=== PATIENT | female | born 1985 | race Caucasian/White ===

== ENCOUNTER 2016-10-28 10:41 | Emergency (ER) | payer OTHER ==
--- NOTE | 2016-10-28 10:45 | PDOC ---
History of Present Illness - General Chief Complaint: Cold Symptoms Stated Complaint: COUGH,FEVER, BACK PAIN Time Seen by Provider: 10/28/16 10:42 History Source: Patient Exam Limitations: No Limitations - History of Present Illness Initial Comments: 31 yo F history depression p/w 2 day history of high fever (temp range 103-104.7 ), body aches, malaise, poor appetite, poor PO intake. She states that she took motrin at 7am, but still not feeling better. +Nausea, no vomiting. Nausea is worse when she tries to swallow. She has hoarse voice and difficulty swallowing due to pain/swelling. She did not receive a flu shot this year. No known sick contacts. Returned from a trip to the [place] yesterday. Past History - Past Medical History Allergies/Adverse Reactions: Allergies Allergy/AdvReac Type Severity Reaction Status Date / Time No Known Allergies Allergy Verified 10/28/16 10:43 Home Medications: Ambulatory Orders Guaifenesin AC [Robitussin AC -] 5 ml PO Q6H PRN #60 ml MDD 20 mL 10/28/16 Ibuprofen [Motrin -] 600 mg PO PRN PRN 10/28/16 Ondansetron [Zofran -] 4 mg PO TID #21 tablet 10/28/16 Oseltamivir Phosphate [Tamiflu] 75 mg PO BID #10 capsule 10/28/16 Psychiatric Problems: Yes (depression) Thyroid Disease: Yes (PARATHYROID) - Immunization History Immunization Up to Date: Yes - Psycho/Social/Smoking Cessation Hx Anxiety: Yes Suicidal Ideation: Yes Smoking History: Never smoked Number of Cigarettes Smoked Daily: 0 Hx Alcohol Use: No Drug/Substance Use Hx: No Substance Use Type: None Review of Systems - Review of Systems Able to Perform ROS?: Yes Comments:: GENERAL/CONSTITUTIONAL: +Fever and chills. No weakness. HEAD, EYES, EARS, NOSE AND THROAT: No change in vision. No ear pain or discharge. +Sore throat. CARDIOVASCULAR: +Chest tightness. No shortness of breath. RESPIRATORY: No cough, wheezing, or hemoptysis. GASTROINTESTINAL:+Nausea. No vomiting, diarrhea or constipation. GENITOURINARY: No dysuria, frequency, or change in urination. MUSCULOSKELETAL: No joint or muscle swelling or pain. No neck. +R back pain. SKIN: No rash NEUROLOGIC: No headache, vertigo, loss of consciousness, or change in strength/ sensation. ENDOCRINE: No increased thirst. No abnormal weight change. HEMATOLOGIC/LYMPHATIC: No anemia, easy bleeding, or history of blood clots. ALLERGIC/IMMUNOLOGIC: No hives or skin allergy. *Physical Exam - Physical Exam Comments: GENERAL: Awake, alert, and fully oriented, in no acute distress. Appears ill but nontoxic. HEAD: No signs of trauma EYES: PERRLA, EOMI, sclera anicteric, conjunctiva clear ENT: Auricles normal inspection, hearing grossly normal. TMs with clear effusions B/L. Nares with crusting B/L, oropharynx erythematous without exudates. Dry mucosa NECK: Normal ROM, supple, no lymphadenopathy, JVD, or masses LUNGS: Breath sounds equal, clear to auscultation bilaterally. No wheezes, and no crackles HEART: Regular rate and rhythm, normal S1 and S2, no murmurs, rubs or gallops ABDOMEN: Soft, nontender, normoactive bowel sounds. No guarding, no rebound. No masses EXTREMITIES: Normal range of motion, no edema. No clubbing or cyanosis. No cords, erythema, or tenderness NEUROLOGICAL: Cranial nerves II through XII grossly intact. Normal speech, normal gait SKIN: Warm, Dry, normal turgor, no rashes or lesions noted. ED Treatment Course - LABORATORY CBC & Chemistry Diagram: 10/28/16 11:06 10/28/16 11:06 Medical Decision Making - Medical Decision Making 10/28/16 16:28 Pt observed in ED. Improved with antipyretics, IVF. Will DC home with tamiflu, robitussin AC, and zofran. Encouraged plenty of fluids. *DC/Admit/Observation/Transfer Diagnosis at time of Disposition: Influenza A - Discharge Dispostion Disposition: HOME Condition at time of disposition: Stable Admit: No - Prescriptions Prescriptions: Guaifenesin AC [Robitussin AC -] 5 ml PO Q6H PRN #60 ml MDD 20 mL PRN Reason: Cough Oseltamivir Phosphate [Tamiflu] 75 mg PO BID #10 capsule Ondansetron [Zofran -] 4 mg PO TID #21 tablet - Patient Instructions Printed Discharge Instructions: DI for Influenza -- Adult
[2016-10-28 10:54] VITALS: BMI 37.3
[2016-10-28] MEDS ORDERED: SODIUM CHLORIDE 1,000 ML IV STA ×2 (10:56→14:22)
[2016-10-28 11:06] LABS: PH,URINE 7.5 (4.5-8); URINE BILIRUBIN Negative (NEGATIVE); URINE GLUCOSE (UA) Negative (NEGATIVE); URINE KETONE Negative (NEGATIVE); URINE LEUK ESTERASE Trace (NEGATIVE); URINE NITRITE Negative (NEGATIVE); URINE UROBILINOGEN 0.2 E.U/dl (0.2-1.0)
[2016-10-28 11:11] LABS: URINE APPEARANCE SL CLOUDY; URINE BLOOD 1+ (NEGATIVE); URINE COLOR YELLOW; URINE PROTEIN 1+ (NEGATIVE)
[2016-10-28 11:37] LABS: BASOPHIL 0.4 % (0-2.0); MCH 28.5 pg (25.7-33.7); MEAN CELL VOLUME 86.4 fl (80-96); MEAN PLT VOLUME 11.8 fl (7.5-11.1); NEUTROPHILS 76.3 % (42.8-82.8); PLATELET COUNT 175 K/MM3 (134-434); RDW 12.7 % (11.6-15.6); WHITE BLOOD COUNT 5.8 K/mm3 (4.0-10.0)
[2016-10-28] MEDS ORDERED: KETOROLAC TROMETHAMINE 30 MG/1 ML VIAL ONE (11:58)
[2016-10-28] MEDS ORDERED: KETOROLAC TROMETHAMINE 30 MG/1 ML VIAL IVPUSH ONE (11:58)
[2016-10-28 12:08] LABS: URINE BACTERIA MODERATE /hpf (NEGATIVE); URINE WBC 0-3 (3-5)
[2016-10-28 12:33] LABS: ALBUMIN 4.2 g/dl (3.5-5.0); ALK PHOS 73 U/L (32-92); ANION GAP 13 (8-16); BILIRUBIN,TOTAL 0.3 mg/dl (0.2-1.0); CO2 23 mmol/L (22-28); CREATININE 0.9 mg/dl (0.6-1.3); GLUCOSE,RANDOM 92 mg/dl (74-106); SGOT/AST 22 U/L (10-42); SGPT/ALT 20 U/L (10-40); TOT PROT 7.4 g/dl (6.4-8.3)
[2016-10-28] MEDS ORDERED: ACETAMINOPHEN 325 MG TABLET (FP) PO ONE (14:57)
[2016-10-28] MEDS ORDERED: ACETAMINOPHEN 325 MG TABLET (FP) ONE (14:59)
[2016-10-28 15:53] VITALS: BP 101/57; PULSE 101; TEMP 101
== END 2016-10-28 16:34 | disposition home or self-care (01) ==
LOC: FER 10:41
PROC: 3E0333Z Introduction of Anti-inflammatory into Peripheral Vein, Percutaneous Approach (ICD-10-PCS; principal; 2016-10-28)
PROC: 3E0337Z Introduction of Electrolytic and Water Balance Substance into Peripheral Vein, Percutaneous Approach (ICD-10-PCS; 2016-10-28)
DX: J09.X2 Influenza due to identified novel influenza A virus with other respiratory manifestations (principal); F32.9 Major depressive disorder, single episode, unspecified; F41.9 Anxiety disorder, unspecified; F99 Mental disorder, not otherwise specified; E20.9 Hypoparathyroidism, unspecified
CPT/HCPCS: 36415; 71020-TC; 76775-TC; 80053; 81003; 81015; 84703; 85025; 87040; 87086; 87804; 96361; 96374; 99284-25

== ENCOUNTER 2017-02-25 16:51 | Emergency (ER) | payer OTHER ==
--- NOTE | 2017-02-25 16:54 | PDOC ---
History of Present Illness - History of Present Illness Initial Comments: 02/25/17 17:18 Patient is a 31 year old female with significant medical hx of asthma who is presenting to the ED with four days of left flank pain, dysuria, frequency, and LUQ pain. The patient reports she noted having left flank pain initially several days ago followed by the fever and urinary symptoms. The patient notes her fever went as high as 102.4 and since has remained high. She also complains of LUQ pain, nausea, and two episodes of diarrhea but no vomiting. Patient also endorses some mild suprapubic discomfort. She denies hematuria. The patient also reports shes had recurrent UTIs for the past two months, her last one was three weeks ago and treated with amoxicillin. Social Hx: Denies tobacco use and illicit drug use. Reports occasional alcohol use, once a month. <Yumiko Cotton - Last Filed: 02/25/17 17:18> - General History Source: Patient, Old Records Exam Limitations: No Limitations <Sharyn Douglass - Last Filed: 02/25/17 18:20> - General Chief Complaint: Pain, Acute Stated Complaint: urinary frequency , left abd pain Time Seen by Provider: 02/25/17 16:53 Past History <Yumiko Cotton - Last Filed: 02/25/17 17:18> - Past Medical History Psychiatric Problems: Yes (depression) Thyroid Disease: Yes (PARATHYROID) - Immunization History Immunization Up to Date: Yes - Psycho/Social/Smoking Cessation Hx Anxiety: Yes Suicidal Ideation: Yes Smoking History: Never smoked Have you smoked in the past 12 months: No Number of Cigarettes Smoked Daily: 0 Hx Alcohol Use: No Drug/Substance Use Hx: No Substance Use Type: None <Sharyn Douglass - Last Filed: 02/25/17 18:20> - Past Medical History Allergies/Adverse Reactions: Allergies Allergy/AdvReac Type Severity Reaction Status Date / Time No Known Allergies Allergy Verified 02/25/17 16:52 Home Medications: Ambulatory Orders Levofloxacin [Levaquin] 750 mg PO DAILY #4 tablet 02/25/17 Review of Systems - Review of Systems Comments:: 02/25/17 17:19 GENERAL/CONSTITUTIONAL: Fever. No chills. No weakness. HEAD, EYES, EARS, NOSE AND THROAT: No change in vision. No ear pain or discharge. No sore throat. CARDIOVASCULAR: No chest pain or shortness of breath. RESPIRATORY: No cough, wheezing, or hemoptysis. GASTROINTESTINAL: Suprapubic discomfort, LUQ pain, nausea, diarrhea. No vomiting or constipation. GENITOURINARY: Dysuria, frequency. No hematuria. MUSCULOSKELETAL: Left flank pain. No joint or muscle swelling or pain. No neck pain. ENDOCRINE: No increased thirst. No abnormal weight change. SKIN: No rash NEUROLOGIC: No headache, vertigo, loss of consciousness, or change in strength/ sensation. <Yumiko Cotton - Last Filed: 02/25/17 17:18> *Physical Exam - Vital Signs Last Vital Signs Temp Pulse Resp BP Pulse Ox 100.0 F H 114 H 18 118/64 100 02/25/17 16:52 02/25/17 16:52 02/25/17 16:52 02/25/17 16:52 02/25/17 16:52 - Physical Exam Comments: 02/25/17 17:21 GENERAL: Awake, alert, and fully oriented, in no acute distress HEAD: No signs of trauma EYES: PERRLA, EOMI, sclera anicteric, conjunctiva clear ENT: Auricles normal inspection, hearing grossly normal, nares patent, oropharynx clear without exudates. Moist mucosa NECK: Normal ROM, supple, no lymphadenopathy, JVD, or masses LUNGS: Breath sounds equal, clear to auscultation bilaterally. No wheezes, and no crackles HEART: Regular rate and rhythm, normal S1 and S2, no murmurs, rubs or gallops ABDOMEN: Soft, LUQ tenderness, normoactive bowel sounds. No guarding, no rebound. No masses EXTREMITIES: Normal range of motion, no edema. No clubbing or cyanosis. No cords, erythema, or tenderness MUSCULOSKELETAL: Mild left CVA tenderness. NEUROLOGICAL: Cranial nerves II through XII grossly intact. Normal speech, normal gait SKIN: Warm, Dry, normal turgor, no rashes or lesions noted. HEMATOLOGIC/LYMPHATIC: No anemia, easy bleeding, or history of blood clots. ALLERGIC/IMMUNOLOGIC: No hives or skin allergy. <Yumiko Cotton - Last Filed: 02/25/17 17:18> ED Treatment Course - LABORATORY CBC & Chemistry Diagram: 02/25/17 17:10 02/25/17 17:10 <Sharyn Douglass - Last Filed: 02/25/17 18:20> Medical Decision Making - Medical Decision Making 02/25/17 17:30 31-year-old female with no significant past medical history presents the emergency department with three-day history of fever, left-sided abdominal pain and urinary frequency; she has nausea and 2 episodes of diarrhea. Differential diagnosis includes but is not limited to: Pyelonephritis, gastroenteritis, colitis, UTI, dehydration, electrolyte abnormality, toxic/metabolic derangement. Plan: 1. Labs 2. Urine analysis and urine culture 3. Urine 4. IV fluid for hydration 5. Antipyretics and pain management 6. Observe and reevaluate 02/25/17 18:19 Addendum: Labs were reviewed and are noted in the EMR. The urine is positive for nitrites, RBC's and WBC's. Will give Levaquin 750mg IV in the ED and will discharge on levaquin 750mg daily for the next four days for treatment of pyelonephritis. Follow-up with PCP and [facility] if Sx persist, worsen or new Sx arise. <Sharyn Douglass - Last Filed: 02/25/17 18:20> *DC/Admit/Observation/Transfer - Attestations Scribe Attestion: 02/25/17 17:22 Documentation prepared by Yumiko Cotton, acting as center medical director for Sharyn Douglass MD. <Yumiko Cotton - Last Filed: 02/25/17 17:18> - Discharge Dispostion Admit: No - Attestations Physician Attestion: 02/25/17 16:54 I, Dr. Sharyn Douglass, attest that the scribes documentation that appears above has been prepared under my direction and personally reviewed by me in its entirety. I confirmed that the note above accurately reflects all work, treatment, procedures, and medical decision-making performed by me. <Sharyn Douglass - Last Filed: 02/25/17 18:20> Diagnosis at time of Disposition: Pyelonephritis - Discharge Dispostion Disposition: HOME Condition at time of disposition: Stable - Prescriptions Prescriptions: Levofloxacin [Levaquin] 750 mg PO DAILY #4 tablet - Patient Instructions Printed Discharge Instructions: DI for Kidney Infection Additional Instructions: You have a urinary tract infection called pyelonephritis. You have been given Levaquin 750 mg in the emergency department and you have been prescribed the same medication as an outpatient. Please take 1 tablet daily for the next 4 days for your infection. Please follow-up with your primary care physician within the next week and return to the emergency department if your symptoms persist, worsen, or new symptoms arise.
[2017-02-25] MEDS ORDERED: SODIUM CHLORIDE 1,000 ML IV STA (17:02)
[2017-02-25] MEDS ORDERED: ACETAMINOPHEN 500 MG TABLET (FP) PO ONE (17:02)
[2017-02-25 17:04] VITALS: BMI 35.4
[2017-02-25] MEDS ORDERED: ACETAMINOPHEN 325 MG TABLET (FP) ONE (17:14)
[2017-02-25 17:33] LABS: EOSINOPHIL 0.1 % (0-4.5); MCH 29.3 pg (25.7-33.7); MCHC 34.1 g/dl (32.0-36.0); MEAN PLT VOLUME 11.4 fl (7.5-11.1); NEUTROPHILS 84.4 % (42.8-82.8); PLATELET COUNT 179 K/MM3 (134-434); RDW 12.4 % (11.6-15.6); WHITE BLOOD COUNT 12.4 K/mm3 (4.0-10.8)
[2017-02-25 17:39] LABS: PH,URINE 5.5 (4.5-8); URINE BILIRUBIN Negative (NEGATIVE); URINE GLUCOSE (UA) Negative (NEGATIVE); URINE KETONE 2+ (NEGATIVE); URINE NITRITE Positive (NEGATIVE); URINE PROTEIN Trace (NEGATIVE); URINE UROBILINOGEN 0.2 E.U/dl (0.2-1.0)
[2017-02-25 17:45] LABS: URINE APPEARANCE HAZY; URINE BLOOD 2+ (NEGATIVE); URINE COLOR YELLOW; URINE LEUK ESTERASE 1+ (NEGATIVE)
[2017-02-25 17:47] LABS: ALBUMIN 4.3 g/dl (3.5-5.0); ALK PHOS 73 U/L (32-92); ANION GAP 10 (8-16); BILIRUBIN,TOTAL 0.7 mg/dl (0.2-1.0); CALCIUM 9.2 mg/dl (8.4-10.2); CO2 23 mmol/L (22-28); COCKROFT - GAULT 127.3215; CREATININE 0.9 mg/dl (0.6-1.3); GLUCOSE,RANDOM 102 mg/dl (74-106); SGOT/AST 21 U/L (10-42); SGPT/ALT 17 U/L (10-40); TOT PROT 7.9 g/dl (6.4-8.3)
[2017-02-25 17:53] LABS: URINE BACTERIA FEW /hpf (NEGATIVE); URINE WBC 20-40 (3-5)
[2017-02-25] MEDS ORDERED: LEVOFLOXACIN 750 MG IVPB 150 ML IVPB ONE ×2 (18:06→18:11)
[2017-02-25 19:03] VITALS: BP 91/54; PULSE 92; TEMP 98.8
== END 2017-02-25 19:03 | disposition home or self-care (01) ==
LOC: FER 16:51
PROC: 3E03329 Introduction of Other Anti-infective into Peripheral Vein, Percutaneous Approach (ICD-10-PCS; principal; 2017-02-25)
PROC: 3E0337Z Introduction of Electrolytic and Water Balance Substance into Peripheral Vein, Percutaneous Approach (ICD-10-PCS; 2017-02-25)
DX: N10 Acute pyelonephritis (principal); J45.909 Unspecified asthma, uncomplicated; E07.9 Disorder of thyroid, unspecified; F41.8 Other specified anxiety disorders
CPT/HCPCS: 36415; 80053; 81003; 81015; 83690; 84703; 85025; 87086; 87186; 99282-25

== ENCOUNTER 2017-05-14 11:28 | Emergency (ER) | payer OTHER ==
[2017-05-14 11:40] VITALS: BP 119/77; PULSE 87; TEMP 97.7; BMI 35.4
[2017-05-14] MEDS ORDERED: ACETAMINOPHEN 500 MG TABLET (FP) PO ONE (12:02)
[2017-05-14] MEDS ORDERED: SODIUM CHLORIDE 0.9% 500 ML INFUS.BAG IV ONE (12:02)
[2017-05-14] MEDS ORDERED: METOCLOPRAMIDE HCL INJECTION 10 MG/2 ML VIAL IVPUSH ONE (12:03)
--- NOTE | 2017-05-14 12:11 | PDOC ---
History of Present Illness - General Chief Complaint: Headache Stated Complaint: RESOLVED HEADACHE Time Seen by Provider: 05/14/17 11:43 - History of Present Illness Initial Comments: 05/14/17 12:06 31-year-old female with no significant past medical history presents with sudden onset headache last night at midnight. Headache was right-sided, sharp and worse at onset. About 30 minutes after onset of the headache the patient also reported some posterior occipital pain and a stiff neck. She took Tylenol with some relief of her headache and was able to go to sleep. This morning, the patient reports she still feels the headache although less severe on the right side of her head. Although she's had headaches in the past she reports this headache is more severe than her usual headache with a different distribution. She reports her headaches are typically in a bandlike distribution around her head and not one-sided. Reports mild nausea last night but no vomiting. Did not come in last night because she did not want to leave her child at home. Last menstrual period was 5 days ago. Reports some generalized weakness last night but denies any weakness now and denies any focal weakness or numbness. Has no history of aneurysms. Has no family history of aneurysms area denies any fevers , chills, chest pain, shortness of breath, abdominal pain, dysuria, lower extremity edema or rashes. Past History - Past Medical History Allergies/Adverse Reactions: Allergies Allergy/AdvReac Type Severity Reaction Status Date / Time No Known Allergies Allergy Verified 05/14/17 11:30 Home Medications: Ambulatory Orders NK [No Known Home Medication] 05/14/17 Asthma: Yes Psychiatric Problems: Yes (depression) Thyroid Disease: Yes (PARATHYROID) - Immunization History Immunization Up to Date: Yes - Psycho/Social/Smoking Cessation Hx Anxiety: Yes Suicidal Ideation: No Smoking History: Never smoked Have you smoked in the past 12 months: No Number of Cigarettes Smoked Daily: 0 Information on smoking cessation initiated: No Hx Alcohol Use: No Drug/Substance Use Hx: No Substance Use Type: None Review of Systems - Review of Systems Comments:: 05/14/17 12:09 GENERAL/CONSTITUTIONAL: No fever or chills. +generalized weakness. HEAD, EYES, EARS, NOSE AND THROAT: No change in vision. No ear pain or discharge. No sore throat. CARDIOVASCULAR: No chest pain or shortness of breath. RESPIRATORY: No cough, wheezing, or hemoptysis. GASTROINTESTINAL: + nausea, no vomiting, diarrhea or constipation. GENITOURINARY: No dysuria, frequency, or change in urination. MUSCULOSKELETAL: No joint or muscle swelling or pain. +stiff neck, no back pain. SKIN: No rash NEUROLOGIC: +headache, no vertigo, loss of consciousness, or change in strength/ sensation. ENDOCRINE: No increased thirst. No abnormal weight change. HEMATOLOGIC/LYMPHATIC: No anemia, easy bleeding, or history of blood clots. ALLERGIC/IMMUNOLOGIC: No hives or skin allergy. *Physical Exam - Vital Signs Last Vital Signs Temp Pulse Resp BP Pulse Ox 97.7 F 87 19 119/77 100 05/14/17 11:29 05/14/17 11:29 05/14/17 11:29 05/14/17 11:29 05/14/17 11:29 - Physical Exam Comments: 05/14/17 12:11 GENERAL: Awake, alert, and fully oriented, in no acute distress HEAD: No signs of trauma EYES: PERRLA, EOMI, sclera anicteric, conjunctiva clear ENT: Auricles normal inspection, hearing grossly normal, nares patent, oropharynx clear without exudates. Moist mucosa NECK: Normal ROM, supple, no lymphadenopathy, JVD, or masses LUNGS: Breath sounds equal, clear to auscultation bilaterally. No wheezes, and no crackles HEART: Regular rate and rhythm, normal S1 and S2, no murmurs, rubs or gallops ABDOMEN: Soft, nontender, normoactive bowel sounds. No guarding, no rebound. No masses EXTREMITIES: Normal range of motion, no edema. No clubbing or cyanosis. No cords, erythema, or tenderness NEUROLOGICAL: Normal speech, cranial nerves intact, negative pronator drift, 5/ 5 strength in all 4 extremities, normal sensation to light touch in all 4 extremities, normal cerebellar exam, normal gait, normal reflexes and tone SKIN: Warm, Dry, normal turgor, no rashes or lesions noted. ED Treatment Course - LABORATORY CBC & Chemistry Diagram: 05/14/17 12:36 05/14/17 12:36 Medical Decision Making - Medical Decision Making 05/14/17 12:16 31-year-old female with a history of headaches presents with a sudden onset right sided sharp headache associated with stiff neck and photophobia last night that improved after 2 hours with Tylenol. Exam including a full neurologic exam today is unremarkable. Her neck is supple. Although unlikely, a subarachnoid hemorrhage is on the differential given the sudden onset sharp nature of the headache associated with a stiff neck. This headache may represent a sentinel bleed as well. Pt is very well appearing though, is neurologically intact and currently has a 2/10 headache. Also on the differential is a migraine given her recent menstrual cycle and one-sided nature of the headache. Tension headache also on the differential. -labs -UPT -CTH -Consider LP if CTH negative -IVF/tylenol -reassess 05/14/17 14:45 Urine test is negative. Labs are unremarkable. CT head is negative. Headache completely resolved with IV fluids and Tylenol. On repeat neurological exam the patient continues to have no focal deficits. I discussed the patient's findings with her and her and the possibility that her headache could represent a subarachnoid hemorrhage (SAH) or sentinel bleed. I offered the patient a lumbar puncture to evaluate for these diagnoses however the patient currently declines as she states that she feels well. I explained to the patient while a CT could catch some SAH's, it is not senitive enough to catch all, especially this far out from the onset of her headache.I explained to the patient that a SAH could be a dangerous diagnosis to miss and if left undiagnosed and untreated, could result in permanent disability or . The patient verbalized an understanding of my concerns. She is clinically sober, free from distracting injury, appears to have intact insight and judgment and reason and in my opinion has the capacity to make decisions. The patient is not willing to undergo lumbar puncture.I am unable to convince the patient to stay for a lumbar puncture. I have asked her to return as soon as possible to complete the evaluation. I answered all of her questions. *DC/Admit/Observation/Transfer Diagnosis at time of Disposition: Headache Qualifiers: Headache type: unspecified Headache chronicity pattern: unspecified pattern Intractability: not intractable Qualified Code(s): R51 - Headache - Discharge Dispostion Disposition: HOME Condition at time of disposition: Stable Admit: No - Patient Instructions Additional Instructions: As discussed, your headache may have been a symptom of a subarachnoid hemorrhage. While the CT scan of your head was negative, this does not 100% rule out this dangerous diagnosis. If you change your mind about obtaining the lumbar puncture, please return to the emergency department for a lumbar puncture to further evaluate for this diagnosis. Subarachnoid hemorrhage can cause disability or even . Follow-up with you primary care doctor within 1- 2 days. Return to the emergency department immediately for any new or concerning symptoms or if your symptoms get worse.
[2017-05-14] MEDS ORDERED: ACETAMINOPHEN 500 MG TABLET (FP) ONE ×2 (12:21→12:46)
[2017-05-14 13:31] LABS: ACTIVATED PTT 29.9 SECONDS (24.0-38.9)
[2017-05-14 13:32] LABS: BASOPHIL 1.9 % (0-2.0); EOSINOPHIL 1.2 % (0-4.5); MCH 29.6 pg (25.7-33.7); MCHC 33.2 g/dl (32.0-36.0); MEAN CELL VOLUME 89.2 fl (80-96); MEAN PLT VOLUME 11.7 fl (7.5-11.1); NEUTROPHILS 52.1 % (42.8-82.8); PLATELET COUNT 174 K/MM3 (134-434); RDW 12.6 % (11.6-15.6); WHITE BLOOD COUNT 5.2 K/mm3 (4.0-10.8)
[2017-05-14 13:33] LABS: ALBUMIN 3.7 g/dl (3.5-5.0); ALK PHOS 65 U/L (32-92); ANION GAP 5 (8-16); BILIRUBIN,TOTAL 0.3 mg/dl (0.2-1.0); CALCIUM 8.7 mg/dl (8.4-10.2); CO2 26 mmol/L (22-28); CREATININE 0.8 mg/dl (0.6-1.3); GLUCOSE,RANDOM 89 mg/dl (74-106); SGOT/AST 17 U/L (10-42); SGPT/ALT 13 U/L (10-40); TOT PROT 6.9 g/dl (6.4-8.3)
[2017-05-14 13:36] LABS: INR 0.98 (0.82-1.09)
== END 2017-05-14 15:25 | disposition home or self-care (01) ==
LOC: FER 11:28
PROC: 3E033GC Introduction of Other Therapeutic Substance into Peripheral Vein, Percutaneous Approach (ICD-10-PCS; principal; 2017-05-14)
PROC: 3E0337Z Introduction of Electrolytic and Water Balance Substance into Peripheral Vein, Percutaneous Approach (ICD-10-PCS; 2017-05-14)
DX: R51 Headache (principal)
CPT/HCPCS: 36415; 70450-TC; 80053; 84703; 85025; 85610; 85730; 86850; 86900; 86901; 96374; 99282-25

== ENCOUNTER 2017-12-17 22:52 | Emergency (ER) | payer OTHER ==
[2017-12-17 23:02] VITALS: BP 115/63; PULSE 89; TEMP 98.6; BMI 35.4
--- NOTE | 2017-12-17 23:12 | PDOC ---
History of Present Illness - General Chief Complaint: Pain Stated Complaint: LT SHOULDER PAIN Time Seen by Provider: 12/17/17 22:54 - History of Present Illness Initial Comments: 12/17/17 23:13 32yo F R handed PMhx asthma, breast reduction 2004 p/w L shoulder pain x 2 months. 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 Pain radiates from L shoulder to L bicep and intermittently to her L trapezium. She is seeing an orthopedic doctor for her pain, he prescribed PT which she started 2 days ago. Reports pain is worse since then and she came to the ED today for an MRI to further evaluate the cause of her L arm pain. Denies weakness, numbness, tingling. Has been taking motrin for the pain which helps. Denies recent CP, SOB, f/v, n/v/d, abd pain, [place], LE edema. Past History - Past Medical History Allergies/Adverse Reactions: Allergies Allergy/AdvReac Type Severity Reaction Status Date / Time No Known Allergies Allergy Verified 05/14/17 11:30 Home Medications: Ambulatory Orders Ibuprofen [Motrin -] 400 mg PO ONCE 12/17/17 Asthma: Yes Psychiatric Problems: Yes (depression) Thyroid Disease: Yes (PARATHYROID) - Immunization History Immunization Up to Date: Yes - Suicide/Smoking/Psychosocial Hx Smoking History: Never smoked Have you smoked in the past 12 months: No Number of Cigarettes Smoked Daily: 0 Hx Alcohol Use: No Drug/Substance Use Hx: No Substance Use Type: None Review of Systems - Review of Systems Comments:: 12/17/17 23:28 GENERAL/CONSTITUTIONAL: No fever or chills. No weakness. HEAD, EYES, EARS, NOSE AND THROAT: No change in vision. No ear pain or discharge. No sore throat. GASTROINTESTINAL: No nausea, vomiting, diarrhea or constipation. GENITOURINARY: No dysuria, frequency, or change in urination. CARDIOVASCULAR: No chest pain or shortness of breath. RESPIRATORY: No cough, wheezing, or hemoptysis. MUSCULOSKELETAL: +L shoulder/arm pain SKIN: No rash NEUROLOGIC: No headache, vertigo, loss of consciousness, or change in strength/ sensation. ENDOCRINE: No increased thirst. No abnormal weight change. HEMATOLOGIC/LYMPHATIC: No anemia, easy bleeding, or history of blood clots. ALLERGIC/IMMUNOLOGIC: No hives or skin allergy. *Physical Exam - Physical Exam Comments: 12/17/17 23:29 GENERAL: Awake, alert, and fully oriented, in no acute distress HEAD: No signs of trauma EYES: PERRLA, EOMI, sclera anicteric, conjunctiva clear ENT: Auricles normal inspection, hearing grossly normal, nares patent, oropharynx clear without exudates. Moist mucosa NECK: Normal ROM, supple, no lymphadenopathy, JVD, or masses LUNGS: Breath sounds equal, clear to auscultation bilaterally. No wheezes, and no crackles HEART: Regular rate and rhythm, normal S1 and S2, no murmurs, rubs or gallops ABDOMEN: Soft, nontender, normoactive bowel sounds. No guarding, no rebound. No masses EXTREMITIES: LUE with ttp to L shoulder, worse around the head of the biceps tendon. Pain with passive and active range of motion, but FROM. Pain worse with overhead movements. 5/5 strength in flexion and extension in entire LUE. Normal sensation to light touch. Able to give okay sign, abduct fingers against resistance and thumbs up. 2+ radial pulse. No deformities. Otherwise: Normal range of motion, no edema. No clubbing or cyanosis. No cords , erythema, or tenderness. 2+ peripheral pulses BACK: no midline cervical, thoracic, or lumbar ttp NEUROLOGICAL: Normal speech, cranial nerves intact, negative pronator drift, 5/ 5 strength in all 4 extremities, normal sensation to light touch in all 4 extremities, normal cerebellar exam, normal gait, normal reflexes and tone SKIN: Warm, Dry, normal turgor, no rashes or lesions noted. Medical Decision Making - Medical Decision Making 12/17/17 23:33 32-year-old female presents with 2 months of left upper extremity pain, worse after recent physical therapy session, requesting MRI. Vitals within normal limits. Exam with tenderness to palpation over the shoulder with pain with range of motion, worse with overhead movements. Possible rotator cuff tear, no need for emergent MRI as left upper extremity is neurovascularly intact. Will treat the patient's pain with naproxen and Flexeril. Advised the patient not to take Motrin if she is taking naproxen. Recommended that the patient call her orthopedic surgeon for an outpatient MRI. Patient expresses understanding, requests discharge home. I discussed the physical exam findings, ancillary test results and final diagnoses with the patient. I answered all of the patient's questions. The patient was satisfied with the care received and felt comfortable with the discharge plan and treatment plan. The patient will call their primary care physician within 24 hours to arrange follow-up and will return to the Emergency Department with any new, persistent or worsening symptoms. *DC/Admit/Observation/Transfer Diagnosis at time of Disposition: Shoulder pain, left - Discharge Dispostion Disposition: HOME Condition at time of disposition: Stable Admit: No - Referrals Referrals: Katty Crabtree [Primary Care Provider] - - Patient Instructions Printed Discharge Instructions: DI for Shoulder Pain Additional Instructions: As discussed, call your orthopedic doctor for follow up appointment in 2-3 days. Take naproxen and flexeril as needed for pain. Do not drive a car if you are taking flexeril. Return to the emergency department if you have any new, worsening, or concerning symptoms. - Post Discharge Activity - Attestations Physician Attestion: 12/17/17 23:38 I, Dr. Juan Rose MD, attest that this document has been prepared under my direction and personally reviewed by me in its entirety. I further attest, that it accurately reflects all work, treatment, procedures and medical decision -making performed by me.
[2017-12-17] MEDS ORDERED: NAPROXEN 500 MG TABLET (FP) ONE (23:30)
[2017-12-17] MEDS ORDERED: CYCLOBENZAPRINE HCL 10 MG TABLET (FP) PO ONE (23:30)
[2017-12-17] MEDS ORDERED: CYCLOBENZAPRINE HCL 10 MG TABLET (FP) ONE (23:30)
[2017-12-17] MEDS ORDERED: NAPROXEN 500 MG TABLET (FP) PO ONE (23:30)
== END 2017-12-17 23:42 | disposition home or self-care (01) ==
LOC: FER 22:52
DX: M25.512 Pain in left shoulder (principal)
CPT/HCPCS: 99282-25

== ENCOUNTER 2019-05-13 10:11 | Emergency (ER) | payer OTHER ==
[2019-05-13 10:29] VITALS: BP 118/67; PULSE 86; TEMP 98.4; BMI 33.5
[2019-05-13] MEDS ORDERED: ACETAMINOPHEN 500 MG TABLET (FP) PO ONE (10:54)
[2019-05-13] MEDS ORDERED: ACETAMINOPHEN 500 MG TABLET (FP) ONE (10:56)
--- NOTE | 2019-05-13 11:02 | PDOC ---
History of Present Illness - General Chief Complaint: Pain Stated Complaint: OLIVA PAIN, EPISODE OF SPEECH DIFFICULTY 2 DAYS AGO Time Seen by Provider: 05/13/19 10:21 - History of Present Illness Initial Comments: 05/13/19 10:54 33 F with h/o asthma, migraines, presenting to ED with an episode of garbled speech 2 days ago. Pt states that she developed a headache similar to her usual migraine headaches 2 days ago. Shortly after, she began to experience difficulty speaking. Pt describes trying to speak but mispronouncing the first letter of each word. She has a few of these episodes, lasting about 10 minutes each, over the span of about 3 hours. Pt states that this resolved spontaneously and has not recurred since. Pt denies any speech difficulties currently. Denies ever having slurred speech. Denies facial droop. Denies weakness/numbness in any extremity. Pt states that she also had bilateral leg cramps last night that have since resolved. Pt currently denies any symptoms. Denies difficulty speaking. Denies any pain. However, pt looked up her symptoms online and came for evaluation because she is concerned she may have had a stroke. Pt also notes she is about 5 weeks by LMP. Denies abdominal pain/ cramping/vaginal bleeding/discharge. Past History - Past Medical History Allergies/Adverse Reactions: Allergies Allergy/AdvReac Type Severity Reaction Status Date / Time No Known Allergies Allergy Verified 05/13/19 10:21 Asthma: Yes COPD: No Psychiatric Problems: Yes (depression) Thyroid Disease: Yes (PARATHYROID) - Reproductive History Is Patient Now?: Yes (6 WEEKS) - Immunization History Immunization Up to Date: Yes - Suicide/Smoking/Psychosocial Hx Smoking History: Never smoked Have you smoked in the past 12 months: No Number of Cigarettes Smoked Daily: 0 Hx Alcohol Use: No Drug/Substance Use Hx: No Substance Use Type: None Review of Systems - Review of Systems Comments:: 05/13/19 11:03 GENERAL/CONSTITUTIONAL: No fever or chills. No weakness. HEAD, EYES, EARS, NOSE AND THROAT: No change in vision. No ear pain or discharge. No sore throat. CARDIOVASCULAR: No chest pain, no shortness of breath, no loss of consciousness RESPIRATORY: No cough, wheezing, or hemoptysis. GASTROINTESTINAL: No nausea, vomiting, diarrhea or constipation. GENITOURINARY: No dysuria, frequency, or change in urination. MUSCULOSKELETAL: No joint or muscle swelling or pain. No neck or back pain. SKIN: No rash NEUROLOGIC: + garbled speech, No vertigo, no change in strength/sensation. ENDOCRINE: No increased thirst. No abnormal weight change. HEMATOLOGIC/LYMPHATIC: No anemia, easy bleeding, or history of blood clots. ALLERGIC/IMMUNOLOGIC: No hives or skin allergy. *Physical Exam - Vital Signs Last Vital Signs Temp Pulse Resp BP Pulse Ox 98.4 F 86 16 118/67 99 05/13/19 10:19 05/13/19 10:19 05/13/19 10:19 05/13/19 10:19 05/13/19 10:19 - Physical Exam Comments: 05/13/19 11:03 "GENERAL: Awake, alert, and fully oriented, in no acute distress. HEAD: No signs of trauma EYES: PERRLA, EOMI, sclera anicteric, conjunctiva clear ENT: Auricles normal inspection, hearing grossly normal, nares patent, oropharynx clear without exudates. Moist mucosa NECK: Nontender, no stepoffs, Normal ROM, supple, no lymphadenopathy, JVD, or masses LUNGS: Breath sounds equal, clear to auscultation bilaterally. No wheezes, and no crackles HEART: Regular rate and rhythm, normal S1 and S2, no murmurs, rubs or gallops ABDOMEN: Soft, nontender, normoactive bowel sounds. No guarding, no rebound. No masses EXTREMITIES: Normal range of motion, no edema. No clubbing or cyanosis. No cords, erythema, or tenderness NEUROLOGICAL: Cranial nerves II through XII intact. 5/5 strength and sensation in all extremities, Normal speech, normal gait, normal cerebellar function SKIN: Warm, Dry, normal turgor, no rashes or lesions noted. Medical Decision Making - Medical Decision Making 05/13/19 11:05 33 F with episode of dysarthria 2 days ago, now resolved. Pt on my evaluation has completely normal neuro exam. Suspect atypical migraine given transience of symptoms. Cannot r/o TIA, though very unlikely given lack of risk factors. - CT head deferred due to - F/u neurology for MRI Pt also with BLE cramps last night, now resolved. No leg swelling or calf tenderness to suggest DVT. Pt is well appearing, with normal vitals. Clinically stable for DC at this time. I discussed the physical exam findings, ancillary test results and final diagnoses with the patient. I answered all of the patient's questions. The patient was satisfied with the care received and felt comfortable with the discharge plan and treatment plan. The patient agrees to follow up with the primary care physician within 24-72 hours. *DC/Admit/Observation/Transfer Diagnosis at time of Disposition: Headache, Leg cramps, Dysarthria - Discharge Dispostion Disposition: HOME Condition at time of disposition: Good - Referrals Referrals: Edmundo Arana [Primary Care Provider] - Anand Bermudez DO [Staff Physician] - - Patient Instructions Printed Discharge Instructions: DI for Migraine, DI for Dysarthria Additional Instructions: Call the number provided to make an appointment with our neurologist within 1 week. You will need a MRI of your brain to further evaluate your headaches and your episode of garbled speech. Your symptoms were likely due to an atypical migraine headache. However, if you experience recurrent speech difficulty, weakness or numbness in any extremity, slurred speech, drooping of your face, or any other concerning symptoms, return to the ER immediately. - Post Discharge Activity - Attestations Physician Attestion: 05/13/19 11:16 I, Dr. Clyde Moses MD, attest that this document has been prepared under my direction and personally reviewed by me in its entirety. I further attest, that it accurately reflects all work, treatment, procedures and medical decision -making performed by me.
== END 2019-05-13 11:24 | disposition home or self-care (01) ==
LOC: FER 10:11
DX: R25.2 Cramp and spasm (principal); R51 Headache; R47.1 Dysarthria and anarthria; F32.9 Major depressive disorder, single episode, unspecified; O26.891 Other specified pregnancy related conditions, first trimester; Z3A.01 Less than 8 weeks gestation of pregnancy; J45.909 Unspecified asthma, uncomplicated
CPT/HCPCS: 99282-25

== ENCOUNTER 2019-06-12 12:24 | Emergency (ER) | payer OTHER ==
[2019-06-12] MEDS ORDERED: SODIUM CHLORIDE 1,000 ML IV STA (12:39)
[2019-06-12 12:40] VITALS: BMI 37.8
--- NOTE | 2019-06-12 12:40 | PDOC ---
History of Present Illness - General Chief Complaint: Vaginal Bleeding Stated Complaint: VAGINAL BLEED,10 WKS PREG, COLD SYMPTOMS Time Seen by Provider: 06/12/19 12:39 History Source: Patient Exam Limitations: No Limitations - History of Present Illness Initial Comments: 06/12/19 12:39 HPI 34 YOF at with h/o asthma, migraines, breast reduction, currently 10 weeks presenting with vaginal bleeding x 1 episode that lasted 30 minutes yesterday evening after intercourse. at that time, she denied any pain, but had heavy bleeding that resolved shortly, and no recurrence. she also noted a clear , membrane-like, fibrous material the "size of an ant' when she had the episode. she has also been having URI sx since yesterday, with clear nasal congestion, cough, sore throat and generalized weakness. +headache and dizziness. today she noted fever, from low grade 99 to Tmax 101.2, took tylenol at 11AM with some improvement. +sick contacts, children with URI sx, improving currently. Denies chest pain, SOB, palpitation, dizziness, N, V, D, abdominal pain, bladder and bowel problems, leg swelling, rash. Allergies: None Past Medical History: as documented in EMR/HPI Social history: Lives with family. No tobacco, ETOH or drug use. Meds: as documented in EMR Family history: noncontributory WASH [employer]W PERSON: Dr Reyes 06/12/19 12:39 06/12/19 12:53 06/12/19 12:59 06/12/19 13:47 Past History - Past Medical History Allergies/Adverse Reactions: Allergies Allergy/AdvReac Type Severity Reaction Status Date / Time No Known Allergies Allergy Verified 06/12/19 12:32 Home Medications: Ambulatory Orders Acetaminophen [Tylenol] 650 mg PO ONCE PRN 06/12/19 Asthma: Yes COPD: No Psychiatric Problems: Yes (depression) Thyroid Disease: Yes (PARATHYROID) - Immunization History Immunization Up to Date: Yes - Suicide/Smoking/Psychosocial Hx Smoking History: Never smoked Have you smoked in the past 12 months: No Number of Cigarettes Smoked Daily: 0 Hx Alcohol Use: No Drug/Substance Use Hx: No Substance Use Type: None Review of Systems - Review of Systems Able to Perform ROS?: Yes Comments:: 06/12/19 13:47 Review of systems Constitutional: +fevers or chills. +general weakness HEENT: +headache or dizziness. +congestion. +sore throat. No visual/hearing disturbances. CVS: no cp or syncope. Resp: no sob. +cough Gastrointestinal: no abdominal pain, nausea or vomiting. Genitourinary: no urinary sx, hematuria. +vaginal bleeding, +vaginal discharge MUSCULOSKELETAL: No joint pain and swelling. No neck or back pain. SKIN: no redness or skin changes, no discharge, no rash. No wounds. Hematologic: no easy bruising/bleeding. NEUROLOGIC: No headache, dizziness, LOC or altered mental status. No weakness, numbness or tingling. Psych: no anxiety or depression Allergic/Immunologic: no allergies All other systems reviewed and negative, or as documented in HPI. *Physical Exam - Physical Exam Comments: 06/12/19 13:48 Physical exam General: Well appearing, awake and alert, NAD. HEENT: NCAT, PERRL, EOMI, clear conjunctiva, anicteric, moist mucus membranes, oropharynx clear. Airway patent, normal phonation. Uvula midline. no tonsillar hypertrophy. No sinus tenderness, TM clear, no pinna tenderness to manipulation. Neck: neck supple, FROM Resp: CTAB, normal and even respirations, no respiratory distress CVS: RRR, no murmurs, 2+ peripheral pulses throughout, no peripheral edema Abdomen: soft, NTND, no rebound or guarding. No CVAT. : normal external genitalia, no lesions, clear vaginal vault, no CMT, no adnexal tenderness. Smooth and pink cervix, closed. Back: nontender, normal inspection and ROM MSK: no edema, CAMPOS x4, ROM intact. No clubbing or cyanosis. normal bulk and tone. Extremities: no calf tenderness Neuro: alert, oriented appropriately; no focal neurologic deficits Psych: Calm and cooperative Skin: warm and well perfused, cap refill <2 sec, normal color ED Treatment Course - LABORATORY CBC & Chemistry Diagram: 06/12/19 13:15 06/12/19 13:15 Medical Decision Making - Medical Decision Making 06/12/19 12:59 See HPI for details. Prior notes reviewed, including admissions, discharges and consultations. Vital signs reviewed, +tachycardic, also anxious Vital Signs Temp Pulse Resp BP Pulse Ox 99.1 F 102 H 20 111/68 99 06/12/19 12:32 06/12/19 12:32 06/12/19 12:32 06/12/19 12:32 06/12/19 12:32 laboratory results and imaging reviewed, basic labs and lytes wnl, beta hcg [id number] UA_only trace leuk esterase, diff pending, otherwise unremarkable. strep test neg, f/u throat culture RH status positive no rhogam indicated pelvic sono with live IUP seen, dated 10 weeks and correlating ED course -interventions: IVF, already had analgesia tylenol at 11am exam unremarkable. repeat VS improved, no longer tachy, no fever nontoxic appearing advised pelvic rest, hydration, rest and tylenol prn for fever/pain. bleeding precautions given, return precautions as below also fever/URI sx likely viral mediated, supportive care advised, salt water gargles, warm tea/lemon/prosper, hydration and tylenol analgesia prn Pt to be discharged in stable condition. Patient and family made aware of clinical impression, treatment recommendations and disposition plan, return precautions discussed (including but not limited to new or persistent/worsening symptoms, pain, fevers, or signs of infection, chest pain, respiratory distress , inability to tolerate oral intake, dehydration, syncope, or neurologic changes ). Follow up with PMD and WASH CREW PERSON Dr Reyes (has appt this week in 3 days) as recommended, follow up information provided, take medications as instructed for duration of time. continue with supportive care, avoid triggers and precipitants. All questions answered to patient's satisfaction and expressed understanding and comfort with this. At the time of discharge, the patient is alert, clinically improved, tolerating po and verbalizes understanding of instructions, satisfied with the care received and felt comfortable with the plan. Patient does not suffer from an acute life-threatening medical condition at this time and is safe for outpatient follow-up. 06/12/19 14:06 06/12/19 15:06 06/12/19 15:07 06/12/19 16:26 06/12/19 16:34 *DC/Admit/Observation/Transfer Diagnosis at time of Disposition: URI (upper respiratory infection), Vaginal bleeding in - Discharge Dispostion Disposition: HOME Condition at time of disposition: Improved Decision to Admit order: No - Referrals Referrals: Mehnaz Reyes MD [Staff Physician] - - Patient Instructions Printed Discharge Instructions: DI for Viral Upper Respiratory Infection -- Adult, DI for Vaginal Bleeding During Additional Instructions: 1) Please follow-up with your primary care doctor in the next 1-2 days. Please call tomorrow for for any urgent issues. this could be upper respiratory infection, salt water gargles, 1-2 spoonful of honey and warm lemon tea is appropriate as well for soothing qualities for sore throat/cough. minimize spread of infection given contagious nature, and cover your mouth and wash your hands adequately with soap and water. Stay well hydrated and rest. Cool air - walk around outdoors in the evening. May also try hot shower steam. This can alleviate the congestion and cough. your vaginal bleeding could be from trauma of intercourse. avoid intercourse for the next 1-2 weeks, pelvic rest advised. your vaginal bleeding could be from threatened or pelvic trauma from intercourse, advise pelvic rest and follow up with Dr Reyes as scheduled. 2) You were given a copy of the tests performed today. Please bring the results with you and review them with your primary care doctor. Your laboratory / imaging results were normal, your pelvic ultrasound showed live intrauterine . your strep test and blood work was normal, followup on throat cultures 3) If you have any worsening of symptoms or any other concerns please return to the ED immediately. Return if worsening symptoms including fevers, headache, vomiting, visual or hearing disturbances, abdominal pain, chest pain, shortness of breath, syncope, dehydration, inability to take things by mouth/vomiting, altered mental status, or worsening concerning symptoms. - Post Discharge Activity
[2019-06-12 13:39] LABS: BASO % 0.3 % (0-2.0); EOS % 2.9 % (0-4.5); HEMATOCRIT 39.7 % (32.4-45.2); HEMOGLOBIN 13.1 GM/dl (10.7-15.3); LYMPH % 16.4 % (8-40); MCH 30.2 pg (25.7-33.7); MEAN CELL VOLUME 91.6 fl (80-96); MEAN PLT VOLUME 11.8 fl (7.5-11.1); MONO % 5.9 % (3.8-10.2); NEUT % 74.5 % (42.8-82.8); PLATELET COUNT 196 K/MM3 (134-434); RBC 4.34 M/mm3 (3.60-5.2); RDW 12.2 % (11.6-15.6); WHITE BLOOD COUNT 6.7 K/mm3 (4.0-10.8)
[2019-06-12 13:48] LABS: ALBUMIN 3.5 g/dl (3.4-5.0); BILIRUBIN,TOTAL 0.2 mg/dl (0.2-1); CALCIUM 9.2 mg/dl (8.5-10); CREATININE 0.5 mg/dl (0.55-1.3); TOT PROT 6.5 g/dl (6.4-8.2)
[2019-06-12] MEDS ORDERED: ACETAMINOPHEN 325 MG TABLET (FP) ONE (16:29)
[2019-06-12 16:32] VITALS: BP 116/71; PULSE 75; TEMP 98.8
[2019-06-12] MEDS ORDERED: ACETAMINOPHEN 325 MG TABLET (FP) PO ONE (16:34)
[2019-06-12 19:22] LABS: EPITHELIAL CELLS FEW /hpf
== END 2019-06-12 16:51 | disposition home or self-care (01) ==
LOC: FER 12:24
PROC: 3E0337Z Introduction of Electrolytic and Water Balance Substance into Peripheral Vein, Percutaneous Approach (ICD-10-PCS; principal; 2019-06-12)
DX: O26.891 Other specified pregnancy related conditions, first trimester (principal); Z3A.10 10 weeks gestation of pregnancy; N93.9 Abnormal uterine and vaginal bleeding, unspecified; J06.9 Acute upper respiratory infection, unspecified; J45.909 Unspecified asthma, uncomplicated; E07.9 Disorder of thyroid, unspecified; F32.9 Major depressive disorder, single episode, unspecified
CPT/HCPCS: 36415; 76801-TC; 80053; 81003; 81015; 84702; 85025; 86850; 86900; 86901; 87070; 87077; 87086; 87880; 99282-25; J7030